=== PATIENT | male | born 1930 | race Caucasian/White ===

== ENCOUNTER → 2016-03-23 | Outpatient (CLI) | payer OTHER ==
[~2016-03-23] MED LIST: ADVIN10/60 INH; ALLO100T PO; AMIO200T4 PO; AMLO-114 PO; ANSHCCR/ TOP; CHOL1000 PO; CLR10 PO; HYDR-5688 PO; IPRA1AER2 INH; LISI40TA PO; MULTCHW PO; OMEG10007 PO; PSYL55.43 PO; ZCR20 PO
--- NOTE | 2016-03-23 10:45 | DIAGNOSTIC IMAGING REPORT ---
PET/CT CLINICAL HISTORY: Lung cancer. COMPARISON STUDY: PET/CT dated 07/01/2015. Chest CT dated 12/18/2015. TECHNIQUE: One hour following the IV administration of 14.38 mCi of F-18 FDG, PET/CT examination was performed from the orbital meatal line through the bony pelvis. Noncontrast CT is performed for the purposes of anatomic correlation and attenuation correction. Note that this does not reflect a diagnostic CT examination. Images were reviewed on a separate [employer] independent workstation. Fused images were obtained. Standard uptake values reported are maximum values within the region of interest expressed in gm/mL. FINDINGS: PET FINDINGS: Head and neck: There is expected physiologic activity within the visualized brain parenchyma at the skull base and the salivary glands. Low level FDG activity in the left supraclavicular region along the course of the infusion port seen on axial image #64 with an SUV of 2.8 is likely on an inflammatory basis. There is no corresponding lesion on the low-dose CT images. Thorax: Evaluation of the thorax demonstrates expected physiologic myocardial activity. A 3.2 x 2.6 cm FDG avid left upper lobe pulmonary lesion has not significant changed in appearance from 12/18/2015. This demonstrates a maximum SUV of 8.4. A metastatic prevascular lymph node image #86 measures 2.9 x 2.0 cm and shows a maximum SUV of 6.8. Metastatic left hilar adenopathy is difficult to measure, but remains markedly FDG avid with a maximum SUV of 10.6. This has also not significantly changed from the 12/18/2015 CT scan. 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 Abdomen and pelvis: There is expected activity within the liver, spleen, kidneys, renal collecting system, and bladder. Low-level bowel activity is likely within physical limits. An FDG avid metastasis in hepatic segment measures at least 3.4 cm and shows a maximum SUV of 6.5. No additional FDG avid hepatic lesions are clearly seen. Low level FDG activity around the hips is likely on an inflammatory/arthritic basis. Unenhanced CT images: Visualized brain parenchyma at the skull base is grossly unremarkable noting age-related involutional atrophy. There are bilateral ocular lens implants. Moderate mucosal thickening is seen within the maxillary antra. Mucosal thickening is also present within the right frontal and ethmoid sinuses. The mastoid air cells are well pneumatized. The salivary glands are normal in appearance. Bilateral thyroid nodules are similar to previous. The largest is in the left lobe and measures up to 1.7 cm. These nodules were not FDG avid. A left subclavian central venous infusion port is in place. No cervical lymphadenopathy is identified. There is atherosclerotic calcification of the thoracic aorta. There is aneurysmal dilatation of the ascending thoracic aorta which measures up to 4.7 cm in diameter. The heart is enlarged and there is a small pericardial effusion. The coronary arteries an about leaflets are densely calcified. There is no axillary lymphadenopathy. Emphysema is noted. There is no airspace consolidation or pleural effusion. See above under PET findings for discussion of pulmonary lesions. There are calcified right hilar lymph nodes. Hepatic metastases are noted. See above. The gallbladder and adrenal glands are grossly unremarkable. The kidneys are atrophic. Bilateral cysts measure up to 4 cm. The pancreas is atrophic. The abdominal aorta is normal in course and caliber noting moderate atherosclerotic calcification. There is no bowel obstruction. There is mild colonic diverticulosis without CT evidence of acute diverticulitis. Moderate colonic fecal retention is observed. A normal appendix is identified. There is no abdominal, pelvic, or inguinal lymphadenopathy. The prostate gland is surgically absent. The bladder is normal as visualized. 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 Arthritic change is present in the hips and there is surrounding bursal fluid. The skeletal structures are osteopenic. Degenerative change is identified throughout the spine. IMPRESSION: 1. No significant change in an FDG avid left upper lobe pulmonary mass with metastatic mediastinal and left hilar adenopathy as compared to 12/18/2015 examination. These lesions are also similar to the 07/01/2015 PET examination. 2. An FDG avid hepatic metastasis in the right lobe has not significantly changed. 3. An FDG avid left posterior seventh rib metastasis has not significant changed. 4. There is no evidence of progressive metastatic disease. 5. Cardiomegaly and emphysema. 6. Status post prostatectomy. 7. There is mild aneurysmal dilatation of the ascending thoracic aorta which measures up to 4.7 cm in diameter. 8. Additional findings as above. Electronically signed by: Niall Aly M.D. 03/23/2016 10:43 AM Dictated Date/Time: 03/23/2016 10:24 AM
== END | disposition home or self-care (01) ==
LOC: C.PET 08:23
PROVIDERS: ATTEND Internal Medicine Hematology & Oncology
DX: C34.90 Malignant neoplasm of unspecified part of unspecified bronchus or lung (principal)